=== PATIENT | female | born 1965 | race Caucasian/White ===

== ENCOUNTER 2020-03-25 02:21 | Inpatient (IN) | payer BC ==
[~2020-03-25] VITALS: Ht 177.8 cm; Wt 109.5 kg
--- NOTE | 2020-03-25 03:07 | NUR ---
PT 1 WEEK POST COVID POSITIVE TEST WENT TO [facility] FOR MUSCLE ACHES AND SOB WITH WALKING. PT SAT IN MID 80%'S PER EMS, PER EMS NO ROOM A [facility] SO PT TRANSFERED TO [facility]. PT GOT 6MG DECADRON, FLUIDS AND 30MG TORDAL PRIOR TO [facility] PER EMS.
[2020-03-25 03:12] LABS: BASOPHILS % (AUTO) 1 % (0-1); EOSINOPHILS % (AUTO) 0 % (1-7); LYMPHOCYTES % (AUTO) 16 % (22-44); MEAN CORPUSCULAR HEMOGLOBIN 31.9 pg (27.0-34.8); MEAN CORPUSCULAR HGB CONC 33.7 g/dL (32.4-35.8); MEAN PLATELET VOLUME 10.6 fL (7.4-10.4); MONOCYTES % (AUTO) 3 % (2-9); NEUTROPHILS % (AUTO) 80 % (42-75); PLATELET COUNT 129 x10^3/uL (130-400); RED BLOOD COUNT 4.34 x10^6/uL (3.82-5.3); RED CELL DISTRIBUTION WIDTH 13.6 % (9.6-15.2)
[2020-03-25 03:17] LABS: MD NO
[2020-03-25 03:24] LABS: ANION GAP 7 mmol/L (5-15); CALCIUM 8.4 mg/dL (8.5-10.1); CHLORIDE 106 mmol/L (98-107)
--- NOTE | 2020-03-25 03:27 | NUR ---
PT PLACED ON FLOOR BED
[2020-03-25] MEDS ORDERED: AZITHROMYCIN 500 MG in SODIUM CHLORIDE 0.9% 250 ML IVPB ONE (03:30)
[2020-03-25] MEDS ORDERED: CEFTRIAXONE PMX 1GM/50ML 50 ML IVPB ONE (03:30)
[2020-03-25 03:31] LABS: ALANINE AMINOTRANSFERASE 28 U/L (12-78); ALKALINE PHOSPHATASE 83 U/L (45-117); BILIRUBIN,TOTAL 0.4 mg/dL (0.2-1.0); C-REACTIVE PROTEIN, QUANT 8.06 mg/dL (0.02-0.49); CREATININE 0.92 mg/dL (0.55-1.02); TOTAL PROTEIN 7.5 g/dL (6.4-8.2)
[2020-03-25 03:34] LABS: D-DIMER (DIC) 0.51 ug/mlFEU (0.00-0.52); PROTIME 10.7 Seconds (9.6-11.5)
[2020-03-25] MEDS ORDERED: CEFTRIAXONE PMX 1GM/50ML 50 ML ONE (03:50)
--- NOTE | 2020-03-25 04:03 | NUR ---
BREAK RN: PATIENT'S ANTIBIOTICS STARTED. PATIENT VERBALIZED UNDERSTANDING OF POSSIBLE COMPLICATIONS RELATED TO ANTIBIOTIC THERAPY. PATIENT DENIES ANY ADDITIONAL NEEDS AT THIS TIME. CALL LIGHT WITHIN REACH, BED IN LOWEST LOCKED POSITION.
[2020-03-25] MEDS ORDERED: LIPITOR (04:25)
[2020-03-25] MEDS ORDERED: MOBIC (04:26)
[2020-03-25] MEDS ORDERED: ROBAXIN (04:29)
[2020-03-25] MEDS ORDERED: SERTRALINE (04:29)
[2020-03-25] MEDS ORDERED: PRILOSEC (04:29)
[2020-03-25] MEDS ORDERED: METFORMIN (04:29)
[2020-03-25] MEDS ORDERED: ATENOLOL (04:29)
[2020-03-25] MEDS ORDERED: NASONEX (04:29)
[2020-03-25] MEDS ORDERED: PERCOCET (04:29)
[2020-03-25] MEDS ORDERED: GABAPENTIN (04:29)
[2020-03-25] MEDS ORDERED: SODIUM CHLORIDE 0.9% 1,000 ML IV SCH (05:30)
[2020-03-25] MEDS ORDERED: BISACODYL 10 MG SUPP PR PRN (05:30)
[2020-03-25] MEDS ORDERED: POLYETHYLENE GLYCOL 17 GM PACKET PO PRN (05:30)
[2020-03-25] MEDS ORDERED: DOCUSATE 100 MG CAPSULE PO PRN (05:30)
[2020-03-25] MEDS ORDERED: hydrALAzine 20 MG/ML, 1ML IVPush PRN (05:30)
[2020-03-25] MEDS ORDERED: ONDANSETRON 2MG/ML, 2ML IVPush PRN (05:30)
[2020-03-25] MEDS ORDERED: PROMETHAZINE 25 MG/ML, 1ML IM PRN (05:30)
[2020-03-25] MEDS: ENOXAPARIN 40 MG/0.4 ML SQ SCH ×2 (05:30→18:30)
[2020-03-25] MEDS ORDERED: OXYcodone IR 5MG TABLET PO PRN (05:30)
[2020-03-25] MEDS ORDERED: ACETAMINOPHEN 325 MG TABLET PO PRN (05:30)
[2020-03-25] MEDS ORDERED: ONDANSETRON ODT 4 MG PO PRN (05:30)
[2020-03-25 06:13] LABS: FREE T4 (FREE THYROXINE) 1.2 ng/dL (0.76-1.46)
[2020-03-25] MEDS: OMEPRAZOLE 10 MG CAPSULE.DR PO SCH (06:47)
[2020-03-25] MEDS: ASCORBIC ACID 500 MG TABLET PO SCH ×4 (06:47→22:29)
[2020-03-25] MEDS: ATENOLOL 25 MG TABLET PO SCH (06:48)
[2020-03-25] MEDS: INSULIN LISPRO 100 UNITS/ML, PEN SQ-INSULIN SCH ×4 (07:00→22:47)
[2020-03-25 07:58] VITALS: BP 148/68
[2020-03-25] MEDS ORDERED: REMDESIVIR 200 MG in SODIUM CHLORIDE 0.9% 250 ML IVPB ONE (08:00)
[2020-03-25] MEDS: ZINC SULFATE 220 MG CAPSULE PO SCH (08:28)
[2020-03-25] MEDS: SERTRALINE 100MG TABLET PO SCH (08:28)
[2020-03-25] MEDS: CHOLECALCIFEROL 5,000u TAB PO SCH (08:28)
[2020-03-25] MEDS: GABAPENTIN 100 MG CAPSULE PO SCH (11:35)
[2020-03-25] MEDS: DEXAMETHASONE 4 MG/ML, 1ML IVPush SCH (12:47)
[2020-03-25 13:55] VITALS: BP 125/74
[2020-03-25 19:59] VITALS: BP 129/75
[2020-03-25] MEDS: ATORVASTATIN 10 MG TABLET PO SCH (22:29)
[2020-03-26] MEDS: CEFTRIAXONE PMX 1GM/50ML 50 ML IV SCH ×2 (01:14→23:13)
[2020-03-26] MEDS: AZITHROMYCIN 500 MG in SODIUM CHLORIDE 0.9% 250 ML IV SCH (01:57)
[2020-03-26 01:59] VITALS: BP 121/55
[2020-03-26] MEDS: OMEPRAZOLE 10 MG CAPSULE.DR PO SCH (05:10)
[2020-03-26] MEDS: ATENOLOL 25 MG TABLET PO SCH (05:10)
[2020-03-26] MEDS: ENOXAPARIN 40 MG/0.4 ML SQ SCH ×2 (05:10→16:46)
[2020-03-26 05:13] VITALS: BP 134/74
[2020-03-26 05:48] LABS: BASOPHILS % (AUTO) 0 % (0-1); EOSINOPHILS % (AUTO) 0 % (1-7); LYMPHOCYTES % (AUTO) 15 % (22-44); MEAN CORPUSCULAR HEMOGLOBIN 31.7 pg (27.0-34.8); MEAN CORPUSCULAR HGB CONC 33.7 g/dL (32.4-35.8); MEAN PLATELET VOLUME 10.2 fL (7.4-10.4); MONOCYTES % (AUTO) 5 % (2-9); NEUTROPHILS % (AUTO) 80 % (42-75); PLATELET COUNT 157 x10^3/uL (130-400); RED BLOOD COUNT 4.23 x10^6/uL (3.82-5.3); RED CELL DISTRIBUTION WIDTH 13.6 % (9.6-15.2)
[2020-03-26 06:02] LABS: CHLORIDE 107 mmol/L (98-107)
[2020-03-26 06:11] LABS: ALANINE AMINOTRANSFERASE 22 U/L (12-78); ALBUMIN 2.7 g/dL (3.4-5.0); ALKALINE PHOSPHATASE 72 U/L (45-117); ANION GAP 6 mmol/L (5-15); BILIRUBIN,TOTAL 0.3 mg/dL (0.2-1.0); CALCIUM 8.5 mg/dL (8.5-10.1); CHOL/HDL RATIO 5.4; CHOLESTEROL, TOTAL 163 mg/dL (140-239); CREATININE 0.73 mg/dL (0.55-1.02); HDL CHOL % 18 % (28-40); HDL CHOLESTEROL (DIRECT) 30 mg/dL (40-60); LDL CHOLESTEROL,CALCULATED 102 mg/dL (54-169); LDL/HDL RATIO 3.4 (0.5-3.0); TRIGLYCERIDES 157 mg/dL (50-200); VLDL CHOLESTEROL 31 mg/dL (0-25)
[2020-03-26 06:27] LABS: MD SCAN
[2020-03-26 08:04] VITALS: BP 105/65
[2020-03-26] MEDS ORDERED: DEXAMETHASONE 4 MG/ML, 5ML ONE (08:44)
[2020-03-26] MEDS: REMDESIVIR 100 MG in SODIUM CHLORIDE 0.9% 250 ML IVPB SCH (09:25)
[2020-03-26] MEDS: INSULIN LISPRO 100 UNITS/ML, PEN SQ-INSULIN SCH ×4 (09:26→20:44)
[2020-03-26] MEDS: GABAPENTIN 100 MG CAPSULE PO SCH (09:27)
[2020-03-26] MEDS: CHOLECALCIFEROL 5,000u TAB PO SCH (09:27)
[2020-03-26] MEDS: DEXAMETHASONE 4 MG/ML, 1ML IVPush SCH (09:27)
[2020-03-26] MEDS: ASCORBIC ACID 500 MG TABLET PO SCH ×3 (09:28→20:45)
[2020-03-26] MEDS: ZINC SULFATE 220 MG CAPSULE PO SCH (09:28)
[2020-03-26] MEDS: SERTRALINE 100MG TABLET PO SCH (09:28)
[2020-03-26 13:05] VITALS: BP 103/67
[2020-03-26 14:05] VITALS: BP 102/67
[2020-03-26] MEDS: BENZONATATE 100 MG CAPSULE PO SCH ×2 (15:32→20:45)
[2020-03-26] MEDS: GUAIFENESIN/DM 200-20MG, 10ML UDC PO SCH ×3 (15:32→23:13)
[2020-03-26] MEDS: INSULIN GLARGINE 100 UNITS/ML, PEN SQ-INSULIN SCH (20:45)
[2020-03-26] MEDS: ATORVASTATIN 10 MG TABLET PO SCH (20:45)
[2020-03-26 20:47] VITALS: BP 127/66
[2020-03-27] MEDS: AZITHROMYCIN 500 MG in SODIUM CHLORIDE 0.9% 250 ML IV SCH (00:16)
[2020-03-27 01:45] VITALS: BP 124/77
[2020-03-27] MEDS: GUAIFENESIN/DM 200-20MG, 10ML UDC PO SCH ×5 (02:30→21:06)
[2020-03-27 05:28] LABS: CHLORIDE 106 mmol/L (98-107)
[2020-03-27 05:40] LABS: ALANINE AMINOTRANSFERASE 23 U/L (12-78); ALBUMIN 2.5 g/dL (3.4-5.0); ALKALINE PHOSPHATASE 69 U/L (45-117); ANION GAP 6 mmol/L (5-15); BILIRUBIN,TOTAL 0.4 mg/dL (0.2-1.0); C-REACTIVE PROTEIN, QUANT 2.15 mg/dL (0.02-0.49); CALCIUM 8.4 mg/dL (8.5-10.1); CREATININE 0.74 mg/dL (0.55-1.02); TOTAL PROTEIN 6.5 g/dL (6.4-8.2)
[2020-03-27] MEDS: ATENOLOL 25 MG TABLET PO SCH (06:00)
[2020-03-27 06:11] VITALS: BP 116/72
[2020-03-27] MEDS: ENOXAPARIN 40 MG/0.4 ML SQ SCH ×2 (06:15→21:00)
[2020-03-27] MEDS: OMEPRAZOLE 10 MG CAPSULE.DR PO SCH (06:15)
[2020-03-27] MEDS: SERTRALINE 100MG TABLET PO SCH (07:01)
[2020-03-27] MEDS ORDERED: DEXAMETHASONE 4 MG/ML, 5ML ONE (08:43)
[2020-03-27] MEDS: INSULIN LISPRO 100 UNITS/ML, PEN SQ-INSULIN SCH ×4 (08:51→21:12)
[2020-03-27] MEDS: REMDESIVIR 100 MG in SODIUM CHLORIDE 0.9% 250 ML IVPB SCH (08:52)
[2020-03-27] MEDS: DEXAMETHASONE 4 MG/ML, 1ML IVPush SCH (08:58)
[2020-03-27] MEDS: CHOLECALCIFEROL 5,000u TAB PO SCH (08:59)
[2020-03-27] MEDS: ASCORBIC ACID 500 MG TABLET PO SCH ×3 (08:59→23:23)
[2020-03-27] MEDS: BENZONATATE 100 MG CAPSULE PO SCH ×3 (08:59→23:23)
[2020-03-27] MEDS: GABAPENTIN 100 MG CAPSULE PO SCH (08:59)
[2020-03-27] MEDS: ZINC SULFATE 220 MG CAPSULE PO SCH (08:59)
[2020-03-27 13:56] VITALS: BP 126/77
[2020-03-27 20:11] VITALS: BP 121/75
[2020-03-27] MEDS: ATORVASTATIN 10 MG TABLET PO SCH (21:06)
[2020-03-27] MEDS: INSULIN GLARGINE 100 UNITS/ML, PEN SQ-INSULIN SCH (21:12)
[2020-03-27] MEDS: CEFTRIAXONE PMX 1GM/50ML 50 ML IV SCH (23:23)
[2020-03-28] MEDS: AZITHROMYCIN 500 MG in SODIUM CHLORIDE 0.9% 250 ML IV SCH (00:09)
[2020-03-28] MEDS: GUAIFENESIN/DM 200-20MG, 10ML UDC PO SCH ×6 (01:07→23:12)
[2020-03-28 02:39] VITALS: BP 132/78
[2020-03-28 05:59] VITALS: BP 120/73
[2020-03-28] MEDS: ATENOLOL 25 MG TABLET PO SCH (06:00)
[2020-03-28] MEDS: OMEPRAZOLE 10 MG CAPSULE.DR PO SCH (06:02)
[2020-03-28 06:42] LABS: ALBUMIN 2.6 g/dL (3.4-5.0); ANION GAP 5 mmol/L (5-15); CALCIUM 8.6 mg/dL (8.5-10.1); CHLORIDE 105 mmol/L (98-107)
[2020-03-28 06:46] LABS: ALANINE AMINOTRANSFERASE 22 U/L (12-78); ALKALINE PHOSPHATASE 72 U/L (45-117); BILIRUBIN,TOTAL 0.4 mg/dL (0.2-1.0); CREATININE 0.74 mg/dL (0.55-1.02); TOTAL PROTEIN 6.6 g/dL (6.4-8.2)
[2020-03-28 07:26] VITALS: BP 125/77
[2020-03-28] MEDS: CHOLECALCIFEROL 5,000u TAB PO SCH (08:09)
[2020-03-28] MEDS: GABAPENTIN 100 MG CAPSULE PO SCH (08:09)
[2020-03-28] MEDS: ASCORBIC ACID 500 MG TABLET PO SCH ×3 (08:09→23:12)
[2020-03-28] MEDS: BENZONATATE 100 MG CAPSULE PO SCH ×2 (08:09→15:33)
[2020-03-28] MEDS: ENOXAPARIN 40 MG/0.4 ML SQ SCH ×2 (08:09→20:20)
[2020-03-28] MEDS: ZINC SULFATE 220 MG CAPSULE PO SCH (08:10)
[2020-03-28] MEDS: INSULIN LISPRO 100 UNITS/ML, PEN SQ-INSULIN SCH ×4 (08:18→20:20)
[2020-03-28] MEDS: SERTRALINE 100MG TABLET PO SCH (08:19)
[2020-03-28] MEDS ORDERED: DEXAMETHASONE 4 MG/ML, 5ML ONE (08:47)
[2020-03-28] MEDS: REMDESIVIR 100 MG in SODIUM CHLORIDE 0.9% 250 ML IVPB SCH (08:50)
[2020-03-28] MEDS: DEXAMETHASONE 4 MG/ML, 1ML IVPush SCH (08:50)
[2020-03-28 13:48] VITALS: BP 143/84
[2020-03-28 18:50] VITALS: BP 136/70
[2020-03-28] MEDS: ATORVASTATIN 10 MG TABLET PO SCH (20:19)
[2020-03-28] MEDS: INSULIN GLARGINE 100 UNITS/ML, PEN SQ-INSULIN SCH (20:20)
[2020-03-28] MEDS: CEFTRIAXONE PMX 1GM/50ML 50 ML IV SCH (23:12)
[2020-03-29] MEDS: AZITHROMYCIN 500 MG in SODIUM CHLORIDE 0.9% 250 ML IV SCH (00:39)
[2020-03-29] MEDS: BENZONATATE 100 MG CAPSULE PO SCH ×4 (00:39→23:25)
[2020-03-29 00:46] VITALS: BP 150/88
[2020-03-29] MEDS: GUAIFENESIN/DM 200-20MG, 10ML UDC PO SCH ×6 (03:34→23:30)
[2020-03-29] MEDS: ATENOLOL 25 MG TABLET PO SCH (06:00)
[2020-03-29] MEDS: OMEPRAZOLE 10 MG CAPSULE.DR PO SCH (06:19)
[2020-03-29 06:31] LABS: CHLORIDE 106 mmol/L (98-107)
[2020-03-29 06:41] LABS: ALANINE AMINOTRANSFERASE 20 U/L (12-78); ALBUMIN 2.5 g/dL (3.4-5.0); ALKALINE PHOSPHATASE 66 U/L (45-117); ANION GAP 8 mmol/L (5-15); BILIRUBIN,TOTAL 0.3 mg/dL (0.2-1.0); CALCIUM 8.4 mg/dL (8.5-10.1); CREATININE 0.65 mg/dL (0.55-1.02); TOTAL PROTEIN 6.4 g/dL (6.4-8.2)
[2020-03-29] MEDS: INSULIN LISPRO 100 UNITS/ML, PEN SQ-INSULIN SCH ×4 (07:00→21:04)
[2020-03-29 07:51] VITALS: BP 156/85
[2020-03-29] MEDS ORDERED: POTASSIUM CHLORIDE 20 MEQ TAB.ER.PRT PO ONE (08:00)
[2020-03-29] MEDS: SERTRALINE 100MG TABLET PO SCH (09:00)
[2020-03-29] MEDS: REMDESIVIR 100 MG in SODIUM CHLORIDE 0.9% 250 ML IVPB SCH (09:27)
[2020-03-29] MEDS: DEXAMETHASONE 4 MG/ML, 1ML IVPush SCH (09:28)
[2020-03-29] MEDS: GABAPENTIN 100 MG CAPSULE PO SCH (09:29)
[2020-03-29] MEDS: ZINC SULFATE 220 MG CAPSULE PO SCH (09:29)
[2020-03-29] MEDS: ASCORBIC ACID 500 MG TABLET PO SCH ×3 (09:29→23:25)
[2020-03-29] MEDS: CHOLECALCIFEROL 5,000u TAB PO SCH (09:29)
[2020-03-29] MEDS: ENOXAPARIN 40 MG/0.4 ML SQ SCH ×2 (09:30→21:00)
[2020-03-29 14:03] VITALS: BP 130/80
[2020-03-29 18:30] VITALS: BP 128/81
[2020-03-29] MEDS: ATORVASTATIN 10 MG TABLET PO SCH (21:02)
[2020-03-29] MEDS: INSULIN GLARGINE 100 UNITS/ML, PEN SQ-INSULIN SCH (21:04)
[2020-03-29] MEDS: CEFTRIAXONE PMX 1GM/50ML 50 ML IV SCH (23:25)
[2020-03-30] MEDS: AZITHROMYCIN 500 MG in SODIUM CHLORIDE 0.9% 250 ML IV SCH (00:13)
[2020-03-30 01:00] VITALS: BP 136/84
[2020-03-30] MEDS: GUAIFENESIN/DM 200-20MG, 10ML UDC PO SCH ×4 (03:21→15:33)
[2020-03-30] MEDS: ATENOLOL 25 MG TABLET PO SCH (06:00)
[2020-03-30 06:06] VITALS: BP 121/72
[2020-03-30] MEDS: OMEPRAZOLE 10 MG CAPSULE.DR PO SCH (06:08)
[2020-03-30] MEDS: ENOXAPARIN 40 MG/0.4 ML SQ SCH (08:23)
[2020-03-30] MEDS: ZINC SULFATE 220 MG CAPSULE PO SCH (08:23)
[2020-03-30] MEDS: CHOLECALCIFEROL 5,000u TAB PO SCH (08:23)
[2020-03-30] MEDS: ASCORBIC ACID 500 MG TABLET PO SCH ×2 (08:23→15:34)
[2020-03-30] MEDS: GABAPENTIN 100 MG CAPSULE PO SCH (08:23)
[2020-03-30] MEDS: BENZONATATE 100 MG CAPSULE PO SCH ×2 (08:24→15:34)
[2020-03-30] MEDS: DEXAMETHASONE 4 MG/ML, 1ML IVPush SCH (08:24)
[2020-03-30] MEDS: SERTRALINE 100MG TABLET PO SCH (08:25)
[2020-03-30] MEDS: INSULIN LISPRO 100 UNITS/ML, PEN SQ-INSULIN SCH ×3 (08:33→15:43)
[2020-03-30 13:39] VITALS: BP 139/78
[2020-03-30] MEDS ORDERED: DEXA6TAB6 PO (15:16)
[2020-03-30] MEDS ORDERED: ZINC220C7 PO (15:16)
[2020-03-30] MEDS ORDERED: CHOL500045 PO (15:16)
[2020-03-30] MEDS ORDERED: BENZ-17 PO (15:16)
[2020-03-30] MEDS ORDERED: ASCO500T9 PO (15:16)
== END 2020-03-30 16:58 | disposition home or self-care (01) | DRG 177 ==
LOC: ED 03:47 → EDIP 03:48 → 3N 05:37
PROVIDERS: ADMIT Internal Medicine; ATTEND Internal Medicine
DX: U07.1 COVID-19 (principal); J12.89 Other viral pneumonia; J96.01 Acute respiratory failure with hypoxia; I10 Essential (primary) hypertension; F43.10 Post-traumatic stress disorder, unspecified; K21.9 Gastro-esophageal reflux disease without esophagitis; G89.29 Other chronic pain; M54.9 Dorsalgia, unspecified; E78.5 Hyperlipidemia, unspecified; E11.65 Type 2 diabetes mellitus with hyperglycemia; F32.9 Major depressive disorder, single episode, unspecified; Z96.659 Presence of unspecified artificial knee joint; Z98.1 Arthrodesis status; Z82.62 Family history of osteoporosis; Z82.0 Family history of epilepsy and other diseases of the nervous system; Z88.0 Allergy status to penicillin; Z88.5 Allergy status to narcotic agent; Z88.8 Allergy status to other drugs, medicaments and biological substances; Z79.899 Other long term (current) drug therapy
CPT/HCPCS: 36415; 71045; 80053; 80061; 82728; 82962; 83036; 83605; 83615; 83735; 84145; 84439; 84443; 85025; 85049; 85379; 85384; 85610; 85730; 86140; 87040; 93005; 96374; 96375; 99285; G0378; J0456; J0696; J1100; J1650; J1815; J7030; J7050

== ENCOUNTER → 2020-09-12 | Outpatient (CLI) | payer BC ==
[~2020-09-12] MED LIST: ASCO500T9 PO; ATENOLOL; BENZ-17 PO; CHOL500045 PO; DEXA6TAB6 PO; GABAPENTIN; LIPITOR; METFORMIN; MOBIC; NASONEX; PERCOCET; PRILOSEC; ROBAXIN; SERTRALINE; ZINC220C7 PO
== END | disposition home or self-care (01) ==
LOC: CVU 06:38
PROVIDERS: ATTEND Internal Medicine Cardiovascular Disease
DX: U07.1 COVID-19 (principal); J98.11 Atelectasis; R93.1 Abnormal findings on diagnostic imaging of heart and coronary circulation; J98.4 Other disorders of lung; R07.9 Chest pain, unspecified; M43.8X6 Other specified deforming dorsopathies, lumbar region; J96.11 Chronic respiratory failure with hypoxia
CPT/HCPCS: 71250; 78452; 93017; 93306; A9502